=== PATIENT | male | born 1960 | race Caucasian/White ===

== ENCOUNTER 2019-03-02 09:49 | Emergency (ER) | payer MEDICAID ==
[~2019-03-02] VITALS: Ht 185.4 cm; Wt 86.4 kg
[2019-03-02] MEDS ORDERED: normal saline 1000ML IV soln IVB ONE ×2 (10:30→11:10)
[2019-03-02 10:41] LABS: BASOPHILS # (AUTO) 0.1 X10'3 (0-0.2); BASOPHILS % (AUTO) 0.4 % (0-1); EOSINOPHILS % (AUTO) 0.3 % (0-6); HEMATOCRIT 45.3 % (42.0-52.0); HEMOGLOBIN 15.5 g/dl (14.0-17.9); LYMPHOCYTES # (AUTO) 2.2 X10'3 (1.1-4.8); LYMPHOCYTES % (AUTO) 14.4 % (21-51); MEAN CORPUSCULAR HEMOGLOBIN 33.3 PG (27.0-31.0); MEAN CORPUSCULAR HGB CONC 34.1 g/dL (33.0-36.5); MEAN CORPUSCULAR VOLUME 97.7 FL (78-98); MEAN PLATELET VOLUME 8.9 FL (7.4-10.4); MONOCYTES # (AUTO) 2.1 X10'3 (0-0.9); MONOCYTES % (AUTO) 13.5 % (2-12); NEUTROPHILS # (AUTO) 11.2 X10'3 (1.8-7.7); NEUTROPHILS % (AUTO) 71.4 % (42-75); PLATELET COUNT 324 X10'3 (140-440); RED BLOOD COUNT 4.64 X10'6 (4.70-6.10); RED CELL DISTRIBUTION WIDTH 12.2 % (11.5-14.5); WHITE BLOOD COUNT 15.6 X10'3 (4.5-11.0)
[2019-03-02 10:48] LABS: ALANINE AMINOTRANSFERASE 63 U/L (12-78); ALBUMIN 2.4 G/DL (3.4-5.0); ALBUMIN/GLOBULIN RATIO 0.4 (1.1-1.5); ALKALINE PHOSPHATASE 103 IU/L (46-116); ANION GAP 9 (8-16); ASPARTATE AMINO TRANSFERASE 60 U/L (10-37); BILIRUBIN,TOTAL 1.6 MG/DL (0.1-1.0); BLOOD UREA NITROGEN 9 MG/DL (7-18); BUN/CREATININE RATIO 9.7 (5.4-32.0); CALCIUM 8.2 MG/DL (8.5-10.1); CHLORIDE 99 MMOL/L (99-107); CREATININE 0.93 MG/DL (0.60-1.10); SODIUM 130 MMOL/L (135-145); TOTAL CARBON DIOXIDE 22.2 MMOL/L (24-32); TOTAL PROTEIN 9.2 G/DL (6.4-8.2); eGFR 83 ML/MIN
[2019-03-02 10:54] LABS: MAGNESIUM 1.9 MG/DL (1.5-2.4)
[2019-03-02] MEDS ORDERED: ketorolac trometh. 30mg/ml inj. IV ONE (10:55)
[2019-03-02] MEDS ORDERED: cloNIDine 0.1 mg tablet PO ONE (10:55)
[2019-03-02 10:56] LABS: GLUCOSE 106 MG/DL (70-104)
[2019-03-02] MEDS ORDERED: SUMA25TA35 PO (11:36)
[2019-03-02 11:45] LABS: TOTAL CELLS COUNTED 100
[2019-03-02 11:46] LABS: PLATELET ESTIMATE NORMAL
[2019-03-02 12:03] VITALS: BP 112/70
[2019-03-02 13:13] LABS: CLARITY,URINE CLEAR (Clear); GLUCOSE, URINE NEGATIVE (Neg); KETONES,URINE NEGATIVE (Neg); LEUKOCYTE ESTERASE ,URINE NEGATIVE (Neg); NITRITES, URINE NEGATIVE (Neg); OCCULT BLOOD,URINE NEGATIVE (Neg); PROTEIN,URINE TRACE mg/dl (Neg)
[2019-03-02 13:16] LABS: COLOR,URINE DARK YELLOW (Yellow); UA COLLECTION TYPE VOIDED
[2019-03-02 13:21] LABS: BACTERIA,URINE NONE SEEN /HPF (Neg); RBC,URINE NONE SEEN /HPF (0-2); SQUAMOUS EPITHELIAL CELL,UR NONE SEEN /LPF (FEW); WBC,URINE NONE SEEN /HPF (0-4)
== END 2019-03-02 12:56 | disposition home or self-care (01) ==
LOC: ER 09:50
DX: R51 Headache (principal); E86.0 Dehydration; R06.02 Shortness of breath; R00.0 Tachycardia, unspecified; R68.2 Dry mouth, unspecified; R10.84 Generalized abdominal pain; F17.210 Nicotine dependence, cigarettes, uncomplicated; F10.99 Alcohol use, unspecified with unspecified alcohol-induced disorder; Z88.5 Allergy status to narcotic agent; Z88.8 Allergy status to other drugs, medicaments and biological substances; Y90.9 Presence of alcohol in blood, level not specified
CPT/HCPCS: 36415; 71045; 80053; 81001; 83735; 83880; 84145; 84484; 85025; 93005; 96361; 96374; 99284; J1885; J7030; 96368

== ENCOUNTER 2019-03-20 12:16 | Emergency (ER) | payer MEDICAID ==
[~2019-03-20] VITALS: Ht 185.4 cm; Wt 71.5 kg
[~2019-03-20 12:16] MED LIST: SUMA25TA35 PO
[2019-03-20 14:55] LABS: BASOPHILS # (AUTO) 0.1 X10'3 (0-0.2); EOSINOPHILS # (AUTO) 0.1 X10'3 (0-0.9); EOSINOPHILS % (AUTO) 0.7 % (0-6); HEMATOCRIT 44.7 % (42.0-52.0); LYMPHOCYTES # (AUTO) 2.1 X10'3 (1.1-4.8); MEAN CORPUSCULAR HEMOGLOBIN 33.2 PG (27.0-31.0); MEAN CORPUSCULAR HGB CONC 33.6 g/dL (33.0-36.5); MEAN CORPUSCULAR VOLUME 98.7 FL (78-98); MONOCYTES # (AUTO) 1.7 X10'3 (0-0.9); MONOCYTES % (AUTO) 12.6 % (2-12); NEUTROPHILS # (AUTO) 9.7 X10'3 (1.8-7.7); NEUTROPHILS % (AUTO) 70.7 % (42-75); PLATELET COUNT 205 X10'3 (140-440); RED BLOOD COUNT 4.53 X10'6 (4.70-6.10); RED CELL DISTRIBUTION WIDTH 13.2 % (11.5-14.5); WHITE BLOOD COUNT 13.7 X10'3 (4.5-11.0)
[2019-03-20 15:16] LABS: PARTIAL THROMBOPLASTIN TIME 26 SECONDS (22-32)
[2019-03-20 15:17] LABS: ALANINE AMINOTRANSFERASE 248 U/L (12-78); ALBUMIN 2.6 G/DL (3.4-5.0); ALBUMIN/GLOBULIN RATIO 0.4 (1.1-1.5); ALKALINE PHOSPHATASE 206 IU/L (46-116); ANION GAP 8 (8-16); ASPARTATE AMINO TRANSFERASE 166 U/L (10-37); BILIRUBIN,TOTAL 1.4 MG/DL (0.1-1.0); BLOOD UREA NITROGEN 10 MG/DL (7-18); BUN/CREATININE RATIO 13.7 (5.4-32.0); C-REACTIVE PROTEIN 5.56 MG/DL (0.0-0.5); CALCIUM 8.5 MG/DL (8.5-10.1); CHLORIDE 103 MMOL/L (99-107); CREATININE 0.73 MG/DL (0.60-1.10); GLUCOSE 84 MG/DL (70-104); MAGNESIUM 1.9 MG/DL (1.5-2.4); POTASSIUM 4.3 MMOL/L (3.5-5.1); SODIUM 137 MMOL/L (135-145); TOTAL CARBON DIOXIDE 25.9 MMOL/L (24-32); TOTAL PROTEIN 8.5 G/DL (6.4-8.2); eGFR > 90 ML/MIN
[2019-03-20] MEDS ORDERED: normal saline 1000ML IV soln IVB ONE (15:30)
[2019-03-20] MEDS ORDERED: proCHLORperazine 10 MG/2 ml inj IV ONE (15:30)
[2019-03-20] MEDS ORDERED: methylPREDNISolone sod succ 125mg/2ml vial IV ONE (15:30)
[2019-03-20] MEDS ORDERED: morphine 2 MG/ML inj. syringe IV PRN (15:30)
[2019-03-20] MEDS ORDERED: ketorolac trometh. 30mg/ml inj. IV ONE (15:30)
[2019-03-20] MEDS ORDERED: PROC25SU30 PO (15:50)
[2019-03-20] MEDS ORDERED: PRED10TA23 PO (15:50)
[2019-03-20 16:40] VITALS: BP 152/80
== END 2019-03-20 16:44 | disposition home or self-care (01) ==
LOC: ER 12:16
DX: M31.6 Other giant cell arteritis (principal); G43.909 Migraine, unspecified, not intractable, without status migrainosus; R00.2 Palpitations; Z88.5 Allergy status to narcotic agent; Z79.899 Other long term (current) drug therapy
CPT/HCPCS: 36415; 70450; 70486; 80053; 83735; 85025; 85610; 85651; 85730; 86140; 93005; 96374; 96375; 99284; J0780; J1885; J2930; J7030

== ENCOUNTER 2019-04-27 09:55 | Emergency (ER) | payer MEDICAID ==
[~2019-04-27] VITALS: Ht 185.4 cm; Wt 83.0 kg
[~2019-04-27 09:55] MED LIST changes: +PROC25SU30 PO; -SUMA25TA35 PO
[2019-04-27] MEDS ORDERED: METH4TAB81 PO (11:33)
[2019-04-27 12:03] VITALS: BP 128/76
== END 2019-04-27 12:05 | disposition home or self-care (01) ==
LOC: ER 09:56
DX: R51 Headache (principal); F10.99 Alcohol use, unspecified with unspecified alcohol-induced disorder; Z88.5 Allergy status to narcotic agent; Z79.899 Other long term (current) drug therapy; Y90.9 Presence of alcohol in blood, level not specified
CPT/HCPCS: 99283; 99284

== ENCOUNTER 2019-09-11 08:44 | Day surgery (SDC) | payer MEDICAID ==
[~2019-09-11] VITALS: Ht 185.4 cm; Wt 67.9 kg
[2019-09-11] VITALS (26 sets, daily range): BP systolic 94–126; BP diastolic 51–92
[~2019-09-11 08:44] MED LIST changes: +LACT-237 PO; -PROC25SU30 PO
[2019-09-11] MEDS ORDERED: normal saline 1000ml 1,000 ML IV SCH ×2 (09:10→12:41)
[2019-09-11] MEDS ORDERED: HYDR-4383 PO (09:59)
[2019-09-11 10:13] LABS: LYMPHOCYTES # (AUTO) 1.5 X10'3 (1.1-4.8); MEAN PLATELET VOLUME 9.1 FL (7.4-10.4)
[2019-09-11 10:16] LABS: BASOPHILS # (AUTO) 0.1 X10'3 (0-0.2); BASOPHILS % (AUTO) 0.6 % (0-1); EOSINOPHILS % (AUTO) 0.1 % (0-6); HEMATOCRIT 34.7 % (42.0-52.0); HEMOGLOBIN 11.5 g/dl (14.0-17.9); LYMPHOCYTES % (AUTO) 9.2 % (21-51); MEAN CORPUSCULAR HEMOGLOBIN 28.8 PG (27.0-31.0); MEAN CORPUSCULAR HGB CONC 33.1 g/dL (33.0-36.5); MEAN CORPUSCULAR VOLUME 86.9 FL (78-98); MONOCYTES # (AUTO) 2.1 X10'3 (0-0.9); MONOCYTES % (AUTO) 12.9 % (2-12); NEUTROPHILS # (AUTO) 12.4 X10'3 (1.8-7.7); NEUTROPHILS % (AUTO) 77.2 % (42-75); PLATELET COUNT 286 X10'3 (140-440); RED BLOOD COUNT 3.99 X10'6 (4.70-6.10); RED CELL DISTRIBUTION WIDTH 16.3 % (11.5-14.5); WHITE BLOOD COUNT 16.1 X10'3 (4.5-11.0)
[2019-09-11] MEDS ORDERED: fentaNYL/PF 50MCG/1 ML 2ML syringe ONE ×2 (10:44→11:45)
[2019-09-11] MEDS ORDERED: midazolam 2 mg/2 ml injection ONE (10:44)
[2019-09-11 10:54] LABS: ANISOCYTOSIS 1+; PLATELET ESTIMATE NORMAL; TOTAL CELLS COUNTED 100
[2019-09-11] MEDS ORDERED: gelatin sponge, absorbable (Gelfoam 12-7MM) sponge TP ONE (11:16)
[2019-09-11] MEDS ORDERED: LIDOcaine 1%/PF 5ML 10 MG/ML VIAL ONE (11:42)
[2019-09-11] MEDS ORDERED: HYDROcodone/acetaminophen 5mg/325mg tablet PO PRN (12:45)
== END 2019-09-11 16:00 | disposition home or self-care (01) ==
LOC: SSTAY O 08:44
PROVIDERS: ATTEND Radiology Vascular & Interventional Radiology
DX: R59.0 Localized enlarged lymph nodes (principal); R16.0 Hepatomegaly, not elsewhere classified; K74.69 Other cirrhosis of liver; C96.9 Malignant neoplasm of lymphoid, hematopoietic and related tissue, unspecified; F17.210 Nicotine dependence, cigarettes, uncomplicated; Z88.8 Allergy status to other drugs, medicaments and biological substances; Z88.5 Allergy status to narcotic agent; Z79.899 Other long term (current) drug therapy
CPT/HCPCS: 36415; 38505; 47000; 77012; 85025; 99152; 99153; J2250; J3010; 49180

== ENCOUNTER 2020-01-19 16:34 | Inpatient (IN) | payer MEDICAID ==
[~2020-01-19] VITALS: Ht 185.4 cm; Wt 68.2 kg
[~2020-01-19 16:34] MED LIST changes: +HYDR-4383 PO; -LACT-237 PO
[2020-01-19 17:59] LABS: BASOPHILS # (AUTO) 0.1 X10'3 (0-0.2); EOSINOPHILS % (AUTO) 0.1 % (0-6); HEMATOCRIT 22.5 % (42.0-52.0); HEMOGLOBIN 7.3 g/dl (14.0-17.9); LYMPHOCYTES # (AUTO) 2.1 X10'3 (1.1-4.8); MEAN CORPUSCULAR HEMOGLOBIN 31.6 PG (27.0-31.0); MEAN CORPUSCULAR HGB CONC 32.2 g/dL (33.0-36.5); MEAN CORPUSCULAR VOLUME 98.1 FL (78-98); MEAN PLATELET VOLUME 8.9 FL (7.4-10.4); MONOCYTES # (AUTO) 0.9 X10'3 (0-0.9); MONOCYTES % (AUTO) 14.1 % (2-12); NEUTROPHILS # (AUTO) 3.4 X10'3 (1.8-7.7); NEUTROPHILS % (AUTO) 52.8 % (42-75); PLATELET COUNT 263 X10'3 (140-440); RED BLOOD COUNT 2.29 X10'6 (4.70-6.10); RED CELL DISTRIBUTION WIDTH 20.8 % (11.5-14.5); WHITE BLOOD COUNT 6.5 X10'3 (4.5-11.0)
[2020-01-19 18:21] LABS: ALANINE AMINOTRANSFERASE 105 U/L (12-78); ALBUMIN 1.9 G/DL (3.4-5.0); ALBUMIN/GLOBULIN RATIO 0.4 (1.1-1.5); ALKALINE PHOSPHATASE 149 IU/L (46-116); ANION GAP 21 (8-16); ASPARTATE AMINO TRANSFERASE 163 U/L (10-37); BILIRUBIN,TOTAL 0.6 MG/DL (0.1-1.0); BLOOD UREA NITROGEN 37 MG/DL (7-18); BUN/CREATININE RATIO 26.2 (5.4-32.0); CALCIUM 7.8 MG/DL (8.5-10.1); CHLORIDE 103 MMOL/L (99-107); CREATININE 1.41 MG/DL (0.60-1.10); GLUCOSE 63 MG/DL (70-104); LIPASE 140 U/L (73-393); POTASSIUM 5.1 MMOL/L (3.5-5.1); SODIUM 138 MMOL/L (135-145); TOTAL PROTEIN 6.4 G/DL (6.4-8.2); eGFR 51 ML/MIN
[2020-01-19 18:23] LABS: TOTAL CARBON DIOXIDE 13.6 MMOL/L (24-32)
[2020-01-19 18:50] LABS: ANISOCYTOSIS 3+; PLATELET ESTIMATE NORMAL
[2020-01-19 18:51] LABS: ELLIPTOCYTES 1+; MICROCYTOSIS FEW
[2020-01-19 18:52] LABS: SPHEROCYTES FEW
--- NOTE | 2020-01-19 18:54 | NUR ---
pt was sitting in lobby in a wheelchair. He was breathing at a rapid rate and hands were presenting with carpal spasm. pt was not answering questions for me. while attempting to wheelchair pt back to room when he became rigid and began to slip out of wheelchair. pt was lowered safely to ground by staff where a pulse check was done. pt had a carotid pulse and was still breathing. MD was present and pt was moved to room 2 for further
[2020-01-19] MEDS ORDERED: CefTRIAXone 2gm/D5W 50ml 50 ML IV ONE (19:25)
[2020-01-19] MEDS ORDERED: octreotide inj. 500 MCG in normal saline 100ml IV soln 100 ML IV SCH (19:25)
[2020-01-19] MEDS ORDERED: pantoprazole 40 MG vial IV ONE (19:25)
[2020-01-19] MEDS ORDERED: OCTREOTIDE 1,250 MCG in NS 250ml IV.SOLN IV SCH (19:30)
[2020-01-19] MEDS ORDERED: CefTRIAXone inj 2,000 MG in normal saline 100ml IV soln 100 ML IV ONE (19:35)
[2020-01-19] MEDS ORDERED: iohexol 350MG/ML 100ml bottle IV ONE (19:37)
[2020-01-19 19:49] LABS: OCCULT BLOOD STOOL POSITIVE (Neg)
[2020-01-19 19:50] LABS: PARTIAL THROMBOPLASTIN TIME 28 SECONDS (22-32)
[2020-01-19 20:52] VITALS: BP 116/63
[2020-01-19] MEDS ORDERED: mag hydrox/Alum hydrox/simeth 30ml oral suspension PO PRN (20:55)
[2020-01-19] MEDS ORDERED: ondansetron/PF 4mg/2ml inj IV PRN (20:55)
[2020-01-19] MEDS ORDERED: morphine 2 MG/ML inj. syringe IV PRN (20:55)
[2020-01-19] MEDS ORDERED: magnesium hydroxide 30ml (MOM) UD suspension PO PRN (20:55)
[2020-01-19] MEDS ORDERED: acetaminophen 325mg tablet PO PRN (20:55)
[2020-01-19] MEDS ORDERED: MORP-92 PO (21:14)
[2020-01-19] MEDS ORDERED: ONDA8TAB6 PO (21:14)
[2020-01-19] MEDS ORDERED: HYDR2TAB28 PO (21:14)
[2020-01-19] MEDS: normal saline 1000ml 1,000 ML IV SCH (21:30)
[2020-01-19] MEDS ORDERED: dextrose 50%-water 50ml dispensing syringe IV ONE (22:00)
--- NOTE | 2020-01-19 22:06 | NUR ---
PT BLOOD SUGAR 31. EDMD BAEHER NOTIFIED AND RECEIVED VERBAL ORDER FOR DEXTROSE 50%. MEDICATION ORDER PLACED AND GIVEN.
[2020-01-19 23:50] LABS: ABG HCO3 10.2 mmol/L (22.0-26.0); ABG OXYGEN SATURATION 98.2 % (94-97); ABG PCO2 (T) 22.5 mmHg (35.0-48.0); ABG PO2 (T) 142.2 mmHg (75.0-100.0); FCOHb 0.3 % (0.0-3.9); FLOW 2 L/min; FMetHb 0.2 % (0.0-1.5); FO2Hb 97.7 % (94-97); TOTAL HEMOGLOBIN 8.4 G/dl (14.0-18.0)
[2020-01-20] VITALS (23 sets, daily range): BP systolic 91–153; BP diastolic 51–86
[2020-01-20 00:05] LABS: BASOPHILS # (AUTO) 0.1 X10'3 (0-0.2); BASOPHILS % (AUTO) 0.5 % (0-1); EOSINOPHILS % (AUTO) 0 % (0-6); HEMATOCRIT 27.8 % (42.0-52.0); LYMPHOCYTES # (AUTO) 1.5 X10'3 (1.1-4.8); LYMPHOCYTES % (AUTO) 8.5 % (21-51); MEAN CORPUSCULAR HGB CONC 32.2 g/dL (33.0-36.5); MEAN CORPUSCULAR VOLUME 96.1 FL (78-98); MEAN PLATELET VOLUME 8.2 FL (7.4-10.4); MONOCYTES # (AUTO) 2.2 X10'3 (0-0.9); MONOCYTES % (AUTO) 12.3 % (2-12); NEUTROPHILS # (AUTO) 13.9 X10'3 (1.8-7.7); NEUTROPHILS % (AUTO) 78.7 % (42-75); PLATELET COUNT 182 X10'3 (140-440); RED BLOOD COUNT 2.89 X10'6 (4.70-6.10); RED CELL DISTRIBUTION WIDTH 20.3 % (11.5-14.5); WHITE BLOOD COUNT 17.6 X10'3 (4.5-11.0)
[2020-01-20 00:15] LABS: CLARITY,URINE CLEAR (Clear); COLOR,URINE YELLOW (Yellow); GLUCOSE, URINE NEGATIVE (Neg); KETONES,URINE TRACE mg/dl (Neg); LEUKOCYTE ESTERASE ,URINE NEGATIVE (Neg); NITRITES, URINE NEGATIVE (Neg); OCCULT BLOOD,URINE LARGE (Neg); PH,URINE 5.5 (4.8-8.0); PROTEIN,URINE 30 mg/dl (Neg); UROBILINOGEN,URINE 0.2 E.U/dL (0.2-1.0)
[2020-01-20 00:29] LABS: UA COLLECTION TYPE CLN CATCH MIDSTREAM
[2020-01-20 00:30] LABS: AMORPHOUS URATES 1+; BACTERIA,URINE FEW /HPF (Neg); SQUAMOUS EPITHELIAL CELL,UR FEW /LPF (FEW); WBC,URINE 0-4 /HPF (0-4)
[2020-01-20 00:37] LABS: ANISOCYTOSIS 2+; PLATELET ESTIMATE NORMAL; SPHEROCYTES FEW; TOTAL CELLS COUNTED 100
[2020-01-20] MEDS ORDERED: HYDROmorphone 2mg tablet PO PRN (02:00)
[2020-01-20 05:11] LABS: ALBUMIN 1.9 G/DL (3.4-5.0); ANION GAP 12 (8-16); BLOOD UREA NITROGEN 38 MG/DL (7-18); CALCIUM 7.9 MG/DL (8.5-10.1); CHLORIDE 106 MMOL/L (99-107); CREATININE 1.46 MG/DL (0.60-1.10); GLUCOSE 153 MG/DL (70-104); POTASSIUM 4.7 MMOL/L (3.5-5.1); SODIUM 137 MMOL/L (135-145); TOTAL CARBON DIOXIDE 18.8 MMOL/L (24-32); eGFR 49 ML/MIN
[2020-01-20 05:18] LABS: BASOPHILS % (AUTO) 0.2 % (0-1); EOSINOPHILS % (AUTO) 0 % (0-6); HEMATOCRIT 25.2 % (42.0-52.0); HEMOGLOBIN 8.2 g/dl (14.0-17.9); LYMPHOCYTES # (AUTO) 1.5 X10'3 (1.1-4.8); LYMPHOCYTES % (AUTO) 10.6 % (21-51); MEAN CORPUSCULAR HEMOGLOBIN 30.4 PG (27.0-31.0); MEAN CORPUSCULAR HGB CONC 32.4 g/dL (33.0-36.5); MEAN CORPUSCULAR VOLUME 93.7 FL (78-98); MEAN PLATELET VOLUME 8.3 FL (7.4-10.4); NEUTROPHILS # (AUTO) 11.3 X10'3 (1.8-7.7); NEUTROPHILS % (AUTO) 82.2 % (42-75); PLATELET COUNT 168 X10'3 (140-440); RED BLOOD COUNT 2.69 X10'6 (4.70-6.10); RED CELL DISTRIBUTION WIDTH 18.9 % (11.5-14.5); WHITE BLOOD COUNT 13.7 X10'3 (4.5-11.0)
--- NOTE | 2020-01-20 06:00 | NUR ---
Patient in room PCU 3028. I have received report from Delores ALVA and had the opportunity to ask questions and assume patient care.
--- NOTE | 2020-01-20 06:09 | NUR ---
Problems reprioritized. Patient report given, questions answered & plan of care reviewed with Shelia ALVA.
[2020-01-20 06:39] LABS: PLATELET ESTIMATE NORMAL
[2020-01-20 06:40] LABS: ANISOCYTOSIS 2+
[2020-01-20] MEDS: normal saline 1000ml 1,000 ML IV SCH ×2 (06:51→17:35)
[2020-01-20] MEDS: pantoprazole 40MG/NS 100ML BAG 100 ML IV SCH ×4 (06:54→20:48)
[2020-01-20 08:53] LABS: BASOPHILS % (AUTO) 0.2 % (0-1); EOSINOPHILS % (AUTO) 0 % (0-6); HEMATOCRIT 24.2 % (42.0-52.0); LYMPHOCYTES # (AUTO) 1.9 X10'3 (1.1-4.8); LYMPHOCYTES % (AUTO) 15.4 % (21-51); MEAN CORPUSCULAR HEMOGLOBIN 30.5 PG (27.0-31.0); MEAN CORPUSCULAR HGB CONC 33.1 g/dL (33.0-36.5); MEAN PLATELET VOLUME 7.9 FL (7.4-10.4); MONOCYTES # (AUTO) 1.2 X10'3 (0-0.9); MONOCYTES % (AUTO) 9.9 % (2-12); NEUTROPHILS # (AUTO) 9.3 X10'3 (1.8-7.7); NEUTROPHILS % (AUTO) 74.5 % (42-75); PLATELET COUNT 157 X10'3 (140-440); RED BLOOD COUNT 2.63 X10'6 (4.70-6.10); RED CELL DISTRIBUTION WIDTH 18.8 % (11.5-14.5); WHITE BLOOD COUNT 12.5 X10'3 (4.5-11.0)
[2020-01-20 09:30] LABS: ANISOCYTOSIS 2+; PLATELET ESTIMATE NORMAL
[2020-01-20] MEDS ORDERED: non-formulary drug (Ondansetron Hcl (Zofran) 1 TAB) PO PRN (13:30)
--- NOTE | 2020-01-20 14:31 | NUR ---
Faxed medical records request to [facility] for EGD report.
[2020-01-20 15:23] LABS: BASOPHILS # (AUTO) 0.1 X10'3 (0-0.2); BASOPHILS % (AUTO) 0.5 % (0-1); EOSINOPHILS % (AUTO) 0.1 % (0-6); HEMATOCRIT 24.1 % (42.0-52.0); LYMPHOCYTES # (AUTO) 2.3 X10'3 (1.1-4.8); LYMPHOCYTES % (AUTO) 19.4 % (21-51); MEAN CORPUSCULAR HEMOGLOBIN 30.7 PG (27.0-31.0); MEAN CORPUSCULAR HGB CONC 33.4 g/dL (33.0-36.5); MEAN PLATELET VOLUME 8.5 FL (7.4-10.4); MONOCYTES # (AUTO) 0.9 X10'3 (0-0.9); NEUTROPHILS # (AUTO) 8.5 X10'3 (1.8-7.7); PLATELET COUNT 144 X10'3 (140-440); RED BLOOD COUNT 2.62 X10'6 (4.70-6.10); RED CELL DISTRIBUTION WIDTH 19.1 % (11.5-14.5); WHITE BLOOD COUNT 11.8 X10'3 (4.5-11.0)
[2020-01-20 15:44] LABS: ANISOCYTOSIS 2+; PLATELET ESTIMATE NORMAL
[2020-01-20] MEDS ORDERED: MIDAZolam 5mg/5ml vial ONE (17:52)
[2020-01-20] MEDS ORDERED: fentaNYL/PF 50MCG/1 ML 2ML syringe ONE (17:52)
[2020-01-20] MEDS ORDERED: LIDOcaine Viscous 15ml cup ONE (17:52)
--- NOTE | 2020-01-20 18:41 | NUR ---
Problems reprioritized. Patient report given, questions answered & plan of care reviewed with Neli ALVA.
--- NOTE | 2020-01-20 18:55 | NUR ---
Patient in room PCU 3028. I have received report from Della ALVA and had the opportunity to ask questions and assume patient care.
--- NOTE | 2020-01-20 20:33 | NUR ---
Patient arrived back from EGD. Vital signs obtained- 99%, HR 80, 96/57, temp -98.0. Post op vitals initiated. Will continue to monitor closely.
[2020-01-20] MEDS: morphine ER 15mg tablet PO SCH (20:48)
[2020-01-20 21:56] LABS: BASOPHILS % (AUTO) 0.4 % (0-1); EOSINOPHILS % (AUTO) 0.2 % (0-6); HEMATOCRIT 23.4 % (42.0-52.0); HEMOGLOBIN 7.9 g/dl (14.0-17.9); LYMPHOCYTES # (AUTO) 2.3 X10'3 (1.1-4.8); MEAN CORPUSCULAR HEMOGLOBIN 31.3 PG (27.0-31.0); MEAN CORPUSCULAR HGB CONC 33.7 g/dL (33.0-36.5); MEAN CORPUSCULAR VOLUME 92.8 FL (78-98); MEAN PLATELET VOLUME 8.4 FL (7.4-10.4); MONOCYTES # (AUTO) 1.5 X10'3 (0-0.9); MONOCYTES % (AUTO) 13.9 % (2-12); NEUTROPHILS # (AUTO) 6.9 X10'3 (1.8-7.7); NEUTROPHILS % (AUTO) 64.5 % (42-75); PLATELET COUNT 127 X10'3 (140-440); RED BLOOD COUNT 2.52 X10'6 (4.70-6.10); RED CELL DISTRIBUTION WIDTH 19.5 % (11.5-14.5); WHITE BLOOD COUNT 10.8 X10'3 (4.5-11.0)
[2020-01-20 22:05] LABS: ANISOCYTOSIS 2+; PLATELET ESTIMATE DECREASED
[2020-01-21] VITALS (9 sets, daily range): BP systolic 98–130; BP diastolic 56–85
[2020-01-21] MEDS: pantoprazole 40MG/NS 100ML BAG 100 ML IV SCH ×2 (01:14→05:36)
[2020-01-21] MEDS: normal saline 1000ml 1,000 ML IV SCH (02:51)
[2020-01-21 05:23] LABS: ALBUMIN 1.7 G/DL (3.4-5.0); ANION GAP 3 (8-16); BLOOD UREA NITROGEN 32 MG/DL (7-18); BUN/CREATININE RATIO 45.1 (5.4-32.0); CALCIUM 7.3 MG/DL (8.5-10.1); CHLORIDE 109 MMOL/L (99-107); CREATININE 0.71 MG/DL (0.60-1.10); GLUCOSE 86 MG/DL (70-104); POTASSIUM 3.9 MMOL/L (3.5-5.1); SODIUM 137 MMOL/L (135-145); TOTAL CARBON DIOXIDE 25.3 MMOL/L (24-32); eGFR > 90 ML/MIN
[2020-01-21 05:27] LABS: BASOPHILS # (AUTO) 0.1 X10'3 (0-0.2); BASOPHILS % (AUTO) 0.7 % (0-1); EOSINOPHILS % (AUTO) 0.3 % (0-6); HEMOGLOBIN 7.3 g/dl (14.0-17.9); LYMPHOCYTES # (AUTO) 2.1 X10'3 (1.1-4.8); LYMPHOCYTES % (AUTO) 27.5 % (21-51); MEAN CORPUSCULAR HEMOGLOBIN 31.7 PG (27.0-31.0); MEAN CORPUSCULAR HGB CONC 34.4 g/dL (33.0-36.5); MEAN CORPUSCULAR VOLUME 92.1 FL (78-98); MEAN PLATELET VOLUME 8.5 FL (7.4-10.4); MONOCYTES # (AUTO) 0.8 X10'3 (0-0.9); MONOCYTES % (AUTO) 10.2 % (2-12); NEUTROPHILS # (AUTO) 4.7 X10'3 (1.8-7.7); NEUTROPHILS % (AUTO) 61.3 % (42-75); PLATELET COUNT 121 X10'3 (140-440); RED BLOOD COUNT 2.29 X10'6 (4.70-6.10); RED CELL DISTRIBUTION WIDTH 18.5 % (11.5-14.5); WHITE BLOOD COUNT 7.7 X10'3 (4.5-11.0)
[2020-01-21 06:23] LABS: HEMATOCRIT 21.1 % (42.0-52.0)
--- NOTE | 2020-01-21 06:30 | NUR ---
Patient in room PCU 3028. I have received report from Yuliya ALVA and had the opportunity to ask questions and assume patient care.
--- NOTE | 2020-01-21 06:32 | NUR ---
Problems reprioritized. Patient report given, questions answered & plan of care reviewed with Alex RN and Josiah RN.
--- NOTE | 2020-01-21 06:33 | NUR ---
Dr Brown PAGER ID: [phone] MESSAGE: 3028B Bhaskar Flores Critical lab- hematocrit 21.1 Yuliya ALVA
--- NOTE | 2020-01-21 06:34 | NUR ---
Patient in room PCU 3028. I have received report from Yuliya ALVA and had the opportunity to ask questions and assume patient care.
[2020-01-21] MEDS: morphine ER 15mg tablet PO SCH ×2 (07:58→19:51)
[2020-01-21 11:08] LABS: BASOPHILS # (AUTO) 0.1 X10'3 (0-0.2); BASOPHILS % (AUTO) 0.8 % (0-1); EOSINOPHILS % (AUTO) 0.3 % (0-6); HEMATOCRIT 22.1 % (42.0-52.0); HEMOGLOBIN 7.5 g/dl (14.0-17.9); LYMPHOCYTES # (AUTO) 1.5 X10'3 (1.1-4.8); LYMPHOCYTES % (AUTO) 21.6 % (21-51); MEAN CORPUSCULAR HEMOGLOBIN 31.4 PG (27.0-31.0); MEAN CORPUSCULAR HGB CONC 33.8 g/dL (33.0-36.5); MEAN CORPUSCULAR VOLUME 92.7 FL (78-98); MEAN PLATELET VOLUME 8.5 FL (7.4-10.4); MONOCYTES # (AUTO) 0.9 X10'3 (0-0.9); MONOCYTES % (AUTO) 12.8 % (2-12); NEUTROPHILS # (AUTO) 4.4 X10'3 (1.8-7.7); NEUTROPHILS % (AUTO) 64.5 % (42-75); PLATELET COUNT 118 X10'3 (140-440); RED BLOOD COUNT 2.38 X10'6 (4.70-6.10); RED CELL DISTRIBUTION WIDTH 18.5 % (11.5-14.5); WHITE BLOOD COUNT 6.8 X10'3 (4.5-11.0)
[2020-01-21 15:52] LABS: BASOPHILS # (AUTO) 0.1 X10'3 (0-0.2); BASOPHILS % (AUTO) 1.6 % (0-1); EOSINOPHILS % (AUTO) 0.4 % (0-6); HEMOGLOBIN 7.2 g/dl (14.0-17.9); LYMPHOCYTES # (AUTO) 1.7 X10'3 (1.1-4.8); LYMPHOCYTES % (AUTO) 24.3 % (21-51); MEAN CORPUSCULAR HEMOGLOBIN 31.2 PG (27.0-31.0); MEAN CORPUSCULAR HGB CONC 33.5 g/dL (33.0-36.5); MEAN CORPUSCULAR VOLUME 93.2 FL (78-98); MONOCYTES # (AUTO) 0.8 X10'3 (0-0.9); MONOCYTES % (AUTO) 11.5 % (2-12); NEUTROPHILS # (AUTO) 4.4 X10'3 (1.8-7.7); NEUTROPHILS % (AUTO) 62.2 % (42-75); PLATELET COUNT 118 X10'3 (140-440); RED BLOOD COUNT 2.29 X10'6 (4.70-6.10); RED CELL DISTRIBUTION WIDTH 18.8 % (11.5-14.5); WHITE BLOOD COUNT 7.1 X10'3 (4.5-11.0)
[2020-01-21 15:54] LABS: HEMATOCRIT 21.4 % (42.0-52.0)
--- NOTE | 2020-01-21 16:09 | NUR ---
paged Dr. Tafoya for LAB crit PAGER ID: [phone] MESSAGE: 3028B, Bhaskar Flores. LAB critical: Hct 21.4 thank you. Josiah [phone]
--- NOTE | 2020-01-21 18:00 | NUR ---
[place]rientee documentation: I have reviewed and agree with all interventions, assessments performed and documented by Josiah Pardo RN.
--- NOTE | 2020-01-21 18:21 | NUR ---
Problems reprioritized. Patient report given, questions answered & plan of care reviewed with Benjamin RN.
--- NOTE | 2020-01-21 18:23 | NUR ---
Problems reprioritized. Patient report given, questions answered & plan of care reviewed with Benjamin RN.
--- NOTE | 2020-01-21 18:30 | NUR ---
Patient in room PCU 3028. I have received report from Elle ALVA and had the opportunity to ask questions and assume patient care.
[2020-01-21] MEDS: pantoprazole 40mg Tablet.DR PO SCH (19:52)
[2020-01-21 21:40] LABS: BASOPHILS # (AUTO) 0.1 X10'3 (0-0.2); BASOPHILS % (AUTO) 1.2 % (0-1); EOSINOPHILS % (AUTO) 0.5 % (0-6); HEMATOCRIT 22.5 % (42.0-52.0); HEMOGLOBIN 7.5 g/dl (14.0-17.9); LYMPHOCYTES # (AUTO) 1.8 X10'3 (1.1-4.8); LYMPHOCYTES % (AUTO) 25.4 % (21-51); MEAN CORPUSCULAR HEMOGLOBIN 30.9 PG (27.0-31.0); MEAN CORPUSCULAR HGB CONC 33.3 g/dL (33.0-36.5); MEAN CORPUSCULAR VOLUME 92.8 FL (78-98); MEAN PLATELET VOLUME 8.5 FL (7.4-10.4); MONOCYTES # (AUTO) 0.9 X10'3 (0-0.9); MONOCYTES % (AUTO) 12.8 % (2-12); NEUTROPHILS # (AUTO) 4.4 X10'3 (1.8-7.7); NEUTROPHILS % (AUTO) 60.1 % (42-75); PLATELET COUNT 124 X10'3 (140-440); RED BLOOD COUNT 2.43 X10'6 (4.70-6.10); RED CELL DISTRIBUTION WIDTH 18.5 % (11.5-14.5); WHITE BLOOD COUNT 7.3 X10'3 (4.5-11.0)
[2020-01-22] VITALS (13 sets, daily range): BP systolic 90–122; BP diastolic 50–65
[2020-01-22] MEDS: morphine 2 MG/ML inj. syringe IV PRN ×3 (02:35→19:55)
[2020-01-22 04:54] LABS: BASOPHILS # (AUTO) 0.1 X10'3 (0-0.2); BASOPHILS % (AUTO) 1.9 % (0-1); EOSINOPHILS % (AUTO) 0.7 % (0-6); HEMOGLOBIN 7.2 g/dl (14.0-17.9); LYMPHOCYTES # (AUTO) 1.6 X10'3 (1.1-4.8); LYMPHOCYTES % (AUTO) 24.9 % (21-51); MEAN CORPUSCULAR HEMOGLOBIN 31.5 PG (27.0-31.0); MEAN CORPUSCULAR HGB CONC 33.7 g/dL (33.0-36.5); MEAN CORPUSCULAR VOLUME 93.5 FL (78-98); MEAN PLATELET VOLUME 8.4 FL (7.4-10.4); MONOCYTES # (AUTO) 0.7 X10'3 (0-0.9); NEUTROPHILS # (AUTO) 3.9 X10'3 (1.8-7.7); NEUTROPHILS % (AUTO) 61.5 % (42-75); PLATELET COUNT 115 X10'3 (140-440); RED CELL DISTRIBUTION WIDTH 18.7 % (11.5-14.5); WHITE BLOOD COUNT 6.4 X10'3 (4.5-11.0)
[2020-01-22 04:57] LABS: HEMATOCRIT 21.5 % (42.0-52.0)
--- NOTE | 2020-01-22 05:03 | NUR ---
Paged Dr. Brown - Discussed patient condition - no additional orders at this time will continue to monitor. 3028B - Bhaskar Flores 59/M - Critical hematocrit, H&H 7.2/21.5 from 7.5/22.5. Post EGD, found x3 ulcers, x1 biopsy, thinking likeky r/t ibuprophen use, liver ca hx. [phone] Benjamin RN
[2020-01-22 05:04] LABS: ALBUMIN 1.5 G/DL (3.4-5.0); ANION GAP 3 (8-16); BLOOD UREA NITROGEN 20 MG/DL (7-18); BUN/CREATININE RATIO 35.1 (5.4-32.0); CALCIUM 7.1 MG/DL (8.5-10.1); CHLORIDE 108 MMOL/L (99-107); CREATININE 0.57 MG/DL (0.60-1.10); GLUCOSE 82 MG/DL (70-104); POTASSIUM 3.7 MMOL/L (3.5-5.1); SODIUM 137 MMOL/L (135-145); TOTAL CARBON DIOXIDE 25.8 MMOL/L (24-32); eGFR > 90 ML/MIN
--- NOTE | 2020-01-22 06:14 | NUR ---
Patient in room PCU 3028. I have received report from Elle ALVA and had the opportunity to ask questions and assume patient care.
--- NOTE | 2020-01-22 06:14 | NUR ---
Patient in room PCU 3028. I have received report from Elle ALVA and had the opportunity to ask questions and assume patient care.
--- NOTE | 2020-01-22 06:20 | NUR ---
Patient in room PCU 3028. I have received report from Benjamin ALVA and had the opportunity to ask questions and assume patient care.
--- NOTE | 2020-01-22 06:38 | NUR ---
Patient in room PCU 3028. I have received report from Benjamin ALVA and had the opportunity to ask questions and assume patient care.
[2020-01-22] MEDS: pantoprazole 40mg Tablet.DR PO SCH ×2 (07:05→19:55)
[2020-01-22] MEDS: morphine ER 15mg tablet PO SCH ×2 (07:06→19:55)
[2020-01-22 09:54] LABS: BASOPHILS # (AUTO) 0.1 X10'3 (0-0.2); BASOPHILS % (AUTO) 1.4 % (0-1); EOSINOPHILS % (AUTO) 0.7 % (0-6); HEMOGLOBIN 7.3 g/dl (14.0-17.9); LYMPHOCYTES # (AUTO) 1.2 X10'3 (1.1-4.8); MEAN CORPUSCULAR HEMOGLOBIN 31.1 PG (27.0-31.0); MEAN CORPUSCULAR HGB CONC 33.4 g/dL (33.0-36.5); MEAN CORPUSCULAR VOLUME 93.2 FL (78-98); MEAN PLATELET VOLUME 8.6 FL (7.4-10.4); MONOCYTES # (AUTO) 0.6 X10'3 (0-0.9); MONOCYTES % (AUTO) 11.2 % (2-12); NEUTROPHILS # (AUTO) 3.7 X10'3 (1.8-7.7); NEUTROPHILS % (AUTO) 64.7 % (42-75); PLATELET COUNT 118 X10'3 (140-440); RED BLOOD COUNT 2.34 X10'6 (4.70-6.10); RED CELL DISTRIBUTION WIDTH 18.4 % (11.5-14.5); WHITE BLOOD COUNT 5.7 X10'3 (4.5-11.0)
[2020-01-22 09:56] LABS: HEMATOCRIT 21.8 % (42.0-52.0)
--- NOTE | 2020-01-22 09:57 | NUR ---
Paged Dr. Tafoya for Lab Crit PAGER ID: [phone] MESSAGE: 3028B. Bhaskar Flores. Spencer ALVARADO. Lab Crit for H/H: .3.8 Thank You. Josiah ALVA [phone]
--- NOTE | 2020-01-22 14:22 | NUR ---
PAGER ID: [phone] MESSAGE: Re: Bhaskar Flores. Room: 3028B. Pt's Blood transfusion finished. -[facility] #[id number] Dr. Tafoya paged concerning Pt's blood transfusion finishing
[2020-01-22 15:43] LABS: BASOPHILS # (AUTO) 0.1 X10'3 (0-0.2); BASOPHILS % (AUTO) 1.4 % (0-1); EOSINOPHILS # (AUTO) 0.1 X10'3 (0-0.9); EOSINOPHILS % (AUTO) 0.9 % (0-6); HEMOGLOBIN 9.3 g/dl (14.0-17.9); LYMPHOCYTES # (AUTO) 1.9 X10'3 (1.1-4.8); LYMPHOCYTES % (AUTO) 26.7 % (21-51); MEAN CORPUSCULAR HEMOGLOBIN 30.9 PG (27.0-31.0); MEAN CORPUSCULAR HGB CONC 33.4 g/dL (33.0-36.5); MEAN CORPUSCULAR VOLUME 92.3 FL (78-98); MEAN PLATELET VOLUME 8.4 FL (7.4-10.4); MONOCYTES # (AUTO) 0.7 X10'3 (0-0.9); MONOCYTES % (AUTO) 10.5 % (2-12); NEUTROPHILS # (AUTO) 4.2 X10'3 (1.8-7.7); NEUTROPHILS % (AUTO) 60.5 % (42-75); PLATELET COUNT 160 X10'3 (140-440); RED BLOOD COUNT 3.03 X10'6 (4.70-6.10); RED CELL DISTRIBUTION WIDTH 17.8 % (11.5-14.5)
--- NOTE | 2020-01-22 18:00 | NUR ---
[place]rientee documentation: I have reviewed and agree with all interventions, assessments performed and documented by Josiah Pardo RN.
--- NOTE | 2020-01-22 18:10 | NUR ---
Problems reprioritized. Patient report given, questions answered & plan of care reviewed with Benjamin RN.
--- NOTE | 2020-01-22 18:12 | NUR ---
Problems reprioritized. Patient report given, questions answered & plan of care reviewed with Benjamin RN.
[2020-01-22 21:47] LABS: BASOPHILS # (AUTO) 0.1 X10'3 (0-0.2); BASOPHILS % (AUTO) 1.3 % (0-1); EOSINOPHILS # (AUTO) 0.1 X10'3 (0-0.9); EOSINOPHILS % (AUTO) 0.8 % (0-6); HEMATOCRIT 24.2 % (42.0-52.0); HEMOGLOBIN 8.2 g/dl (14.0-17.9); LYMPHOCYTES # (AUTO) 1.5 X10'3 (1.1-4.8); LYMPHOCYTES % (AUTO) 23.1 % (21-51); MEAN CORPUSCULAR HEMOGLOBIN 31.2 PG (27.0-31.0); MEAN CORPUSCULAR VOLUME 91.8 FL (78-98); MEAN PLATELET VOLUME 8.7 FL (7.4-10.4); MONOCYTES # (AUTO) 0.7 X10'3 (0-0.9); MONOCYTES % (AUTO) 11.3 % (2-12); NEUTROPHILS # (AUTO) 4.1 X10'3 (1.8-7.7); NEUTROPHILS % (AUTO) 63.5 % (42-75); PLATELET COUNT 120 X10'3 (140-440); RED BLOOD COUNT 2.63 X10'6 (4.70-6.10); RED CELL DISTRIBUTION WIDTH 17.9 % (11.5-14.5); WHITE BLOOD COUNT 6.4 X10'3 (4.5-11.0)
[2020-01-23 03:00] VITALS: BP_SYST 102; BP_SYST 105; BP_SYST 68; BP_DIAS 43; BP_DIAS 55; BP_DIAS 56
[2020-01-23] MEDS: morphine 2 MG/ML inj. syringe IV PRN (03:16)
--- NOTE | 2020-01-23 03:26 | NUR ---
TALKED TO DR VARGAS ABOUT PATIENT +ORTHOSTATIC VITALS / 105/55 SITTING TO 68/43 STANDING. BP BACK TO 100/58 5 MINUTES AFTER LAYING BACK DOWN. Addendum: 01/23/20 at 0625 by Wojciech Johnson RN Ordered to place joanna amaro on patient
[2020-01-23 05:57] LABS: BASOPHILS # (AUTO) 0.1 X10'3 (0-0.2); BASOPHILS % (AUTO) 1.7 % (0-1); EOSINOPHILS % (AUTO) 0.8 % (0-6); HEMATOCRIT 25.1 % (42.0-52.0); HEMOGLOBIN 8.5 g/dl (14.0-17.9); LYMPHOCYTES # (AUTO) 1.3 X10'3 (1.1-4.8); LYMPHOCYTES % (AUTO) 24.7 % (21-51); MEAN CORPUSCULAR HEMOGLOBIN 31.1 PG (27.0-31.0); MEAN CORPUSCULAR VOLUME 91.5 FL (78-98); MEAN PLATELET VOLUME 9.1 FL (7.4-10.4); MONOCYTES # (AUTO) 0.8 X10'3 (0-0.9); MONOCYTES % (AUTO) 15.1 % (2-12); NEUTROPHILS % (AUTO) 57.7 % (42-75); PLATELET COUNT 124 X10'3 (140-440); RED BLOOD COUNT 2.74 X10'6 (4.70-6.10); RED CELL DISTRIBUTION WIDTH 17.9 % (11.5-14.5); WHITE BLOOD COUNT 5.2 X10'3 (4.5-11.0)
[2020-01-23 05:59] LABS: ALBUMIN 1.7 G/DL (3.4-5.0); ANION GAP 5 (8-16); BLOOD UREA NITROGEN 13 MG/DL (7-18); BUN/CREATININE RATIO 20.6 (5.4-32.0); CALCIUM 7.2 MG/DL (8.5-10.1); CHLORIDE 106 MMOL/L (99-107); CREATININE 0.63 MG/DL (0.60-1.10); GLUCOSE 89 MG/DL (70-104); POTASSIUM 3.5 MMOL/L (3.5-5.1); SODIUM 136 MMOL/L (135-145); eGFR > 90 ML/MIN
--- NOTE | 2020-01-23 06:21 | NUR ---
Problems reprioritized. Patient report given, questions answered & plan of care reviewed with Flor ALVA.
--- NOTE | 2020-01-23 06:24 | NUR ---
Patient in room PCU 3028. I have received report from britt and had the opportunity to ask questions and assume patient care.
[2020-01-23 07:00] VITALS: BP 97/55
[2020-01-23] MEDS: morphine ER 15mg tablet PO SCH (07:25)
[2020-01-23] MEDS: pantoprazole 40mg Tablet.DR PO SCH (07:25)
[2020-01-23 10:08] LABS: BASOPHILS # (AUTO) 0.1 X10'3 (0-0.2); BASOPHILS % (AUTO) 1.2 % (0-1); EOSINOPHILS % (AUTO) 0.9 % (0-6); HEMATOCRIT 24.2 % (42.0-52.0); HEMOGLOBIN 8.2 g/dl (14.0-17.9); LYMPHOCYTES # (AUTO) 1.3 X10'3 (1.1-4.8); LYMPHOCYTES % (AUTO) 26.1 % (21-51); MEAN CORPUSCULAR HEMOGLOBIN 31.6 PG (27.0-31.0); MEAN CORPUSCULAR HGB CONC 33.9 g/dL (33.0-36.5); MEAN CORPUSCULAR VOLUME 93.2 FL (78-98); MEAN PLATELET VOLUME 8.8 FL (7.4-10.4); MONOCYTES # (AUTO) 0.8 X10'3 (0-0.9); MONOCYTES % (AUTO) 15.7 % (2-12); NEUTROPHILS # (AUTO) 2.7 X10'3 (1.8-7.7); NEUTROPHILS % (AUTO) 56.1 % (42-75); PLATELET COUNT 117 X10'3 (140-440); RED BLOOD COUNT 2.59 X10'6 (4.70-6.10); RED CELL DISTRIBUTION WIDTH 17.8 % (11.5-14.5); WHITE BLOOD COUNT 4.9 X10'3 (4.5-11.0)
[2020-01-23] MEDS ORDERED: PANT40TA4 PO (10:15)
[2020-01-23 11:00] VITALS: BP 108/59
[2020-01-23 13:23] LABS: ALANINE AMINOTRANSFERASE 227 U/L (12-78); ALBUMIN 1.6 G/DL (3.4-5.0); ALBUMIN/GLOBULIN RATIO 0.4 (1.1-1.5); ALKALINE PHOSPHATASE 144 IU/L (46-116); ANION GAP 6 (8-16); ASPARTATE AMINO TRANSFERASE 303 U/L (10-37); BILIRUBIN,TOTAL 0.8 MG/DL (0.1-1.0); BLOOD UREA NITROGEN 13 MG/DL (7-18); BUN/CREATININE RATIO 18.1 (5.4-32.0); CALCIUM 7.1 MG/DL (8.5-10.1); CHLORIDE 106 MMOL/L (99-107); CREATININE 0.72 MG/DL (0.60-1.10); GLUCOSE 96 MG/DL (70-104); POTASSIUM 3.5 MMOL/L (3.5-5.1); SODIUM 136 MMOL/L (135-145); TOTAL CARBON DIOXIDE 23.6 MMOL/L (24-32); TOTAL PROTEIN 5.6 G/DL (6.4-8.2); eGFR > 90 ML/MIN
[2020-01-23 15:37] VITALS: BP 117/63
--- NOTE | 2020-01-23 16:12 | NUR ---
Discharge instructions gone over with pt. Verbalizes understanding. IV's dc'd x2. Discharged with brother via [place].
== END 2020-01-23 16:12 | disposition home health service (06) | DRG 241 ==
LOC: ER 16:35 → ED HOLD 20:51 → EDBEDREQSVC 01-20 00:22 → PCU 3S 01-20 00:40
PROVIDERS: ADMIT Internal Medicine; ATTEND Family Medicine
PROC: 30233N1 Transfusion of Nonautologous Red Blood Cells into Peripheral Vein, Percutaneous Approach (ICD-10-PCS; 2020-01-19)
PROC: 0DB58ZX Excision of Esophagus, Via Natural or Artificial Opening Endoscopic, Diagnostic (ICD-10-PCS; principal; 2020-01-20)
DX: K29.71 Gastritis, unspecified, with bleeding (principal); N17.9 Acute kidney failure, unspecified; D62 Acute posthemorrhagic anemia; E87.2 Acidosis; E88.09 Other disorders of plasma-protein metabolism, not elsewhere classified; F17.210 Nicotine dependence, cigarettes, uncomplicated; K22.11 Ulcer of esophagus with bleeding; K72.90 Hepatic failure, unspecified without coma; K74.69 Other cirrhosis of liver; R18.8 Other ascites; G89.29 Other chronic pain; C22.0 Liver cell carcinoma; Z88.5 Allergy status to narcotic agent; Z88.8 Allergy status to other drugs, medicaments and biological substances
CPT/HCPCS: 36415; 36430; 36600; 43239; 49083; 70450; 71045; 74174; 80048; 80053; 81001; 82140; 82272; 82803; 82948; 83605; 83690; 83880; 84145; 85018; 85025; 85610; 85730; 86885; 86900; 86901; 86920; 87040; 87081; 93005; 97110; 97116; 97162; 97535; 99152; 99153; 99291; A4620; C9113; G0378; J0696; J2250; J2270; J2354; J2405; J3010; J7030; J7040; J7050; P9016; Q9967

== ENCOUNTER 2020-03-08 06:12 | Day surgery (SDC) | payer MEDICAID ==
[~2020-03-08] VITALS: Ht 185.4 cm; Wt 89.0 kg
[~2020-03-08 06:12] MED LIST changes: -HYDR-4383 PO; +HYDR2TAB28 PO; +MORP-92 PO; +ONDA8TAB6 PO; +PANT40TA54 PO
[2020-03-08 06:36] VITALS: BP 119/73
[2020-03-08] MEDS ORDERED: PANT-47 PO (06:46)
[2020-03-08] MEDS: albumin 25% 100mL bottle x 1 IV PRN ×3 (09:28→10:58)
[2020-03-08 10:49] VITALS: BP 108/67
[2020-03-08 11:00] VITALS: BP 110/76
[2020-03-08 11:20] VITALS: BP 118/65
== END 2020-03-08 11:45 | disposition home or self-care (01) ==
LOC: SSTAY O 06:12
PROVIDERS: ATTEND Radiology Vascular & Interventional Radiology
DX: R18.8 Other ascites (principal)
CPT/HCPCS: 49083; P9047

== ENCOUNTER 2020-03-28 06:57 | Day surgery (SDC) | payer MEDICAID ==
[2020-03-28] VITALS (12 sets, daily range): BP systolic 87–132; BP diastolic 54–83
[~2020-03-28] VITALS: Ht 185.4 cm; Wt 89.0 kg
[~2020-03-28 06:57] MED LIST changes: -MORP-92 PO; +PANT-47 PO; -PANT40TA54 PO
[2020-03-28] MEDS ORDERED: ASCO100T12 PO (07:29)
[2020-03-28] MEDS ORDERED: FURO40TA4 PO (07:29)
[2020-03-28] MEDS ORDERED: POLY119P2 PO (07:29)
[2020-03-28] MEDS ORDERED: DOCO1CAP4 PO (07:29)
[2020-03-28] MEDS ORDERED: PROC10TA10 PO (07:29)
[2020-03-28] MEDS: albumin 25% 100mL bottle x 1 IV PRN ×3 (08:38→10:26)
[2020-03-28 09:52] LABS: HEMOGLOBIN 8.5 g/dl (14.0-17.9); LYMPHOCYTES # (AUTO) 1.3 X10'3 (1.1-4.8); MONOCYTES # (AUTO) 1.1 X10'3 (0-0.9); NEUTROPHILS # (AUTO) 4.3 X10'3 (1.8-7.7); NEUTROPHILS % (AUTO) 63.2 % (42-75)
[2020-03-28 09:53] LABS: BASOPHILS # (AUTO) 0.1 X10'3 (0-0.2); BASOPHILS % (AUTO) 0.8 % (0-1); EOSINOPHILS % (AUTO) 0.4 % (0-6); HEMATOCRIT 25.3 % (42.0-52.0); LYMPHOCYTES % (AUTO) 19.1 % (21-51); MEAN CORPUSCULAR HEMOGLOBIN 30.4 PG (27.0-31.0); MEAN CORPUSCULAR HGB CONC 33.7 g/dL (33.0-36.5); MEAN CORPUSCULAR VOLUME 90.2 FL (78-98); MEAN PLATELET VOLUME 7.7 FL (7.4-10.4); MONOCYTES % (AUTO) 16.5 % (2-12); PLATELET COUNT 287 X10'3 (140-440); RED BLOOD COUNT 2.81 X10'6 (4.70-6.10); RED CELL DISTRIBUTION WIDTH 20.1 % (11.5-14.5); WHITE BLOOD COUNT 6.9 X10'3 (4.5-11.0)
[2020-03-28 10:08] LABS: ALANINE AMINOTRANSFERASE 32 U/L (12-78); ALBUMIN 2.1 G/DL (3.4-5.0); ALBUMIN/GLOBULIN RATIO 0.4 (1.1-1.5); ALKALINE PHOSPHATASE 100 IU/L (46-116); ANION GAP 1 (8-16); ASPARTATE AMINO TRANSFERASE 53 U/L (10-37); BILIRUBIN,TOTAL 0.7 MG/DL (0.1-1.0); BLOOD UREA NITROGEN 13 MG/DL (7-18); BUN/CREATININE RATIO 15.1 (5.4-32.0); CALCIUM 7.6 MG/DL (8.5-10.1); CHLORIDE 91 MMOL/L (99-107); CREATININE 0.86 MG/DL (0.60-1.10); GLUCOSE 120 MG/DL (70-104); POTASSIUM 3.8 MMOL/L (3.5-5.1); SODIUM 126 MMOL/L (135-145); TOTAL CARBON DIOXIDE 34.4 MMOL/L (24-32); TOTAL PROTEIN 6.8 G/DL (6.4-8.2); eGFR > 90 ML/MIN
[2020-03-28 10:14] LABS: ANISOCYTOSIS 3+; PLATELET ESTIMATE NORMAL; TOTAL CELLS COUNTED 100
== END 2020-03-28 11:29 | disposition home or self-care (01) ==
LOC: SSTAY O 06:57
PROVIDERS: ATTEND Radiology Diagnostic Radiology
DX: R18.8 Other ascites (principal)
CPT/HCPCS: 49083; 80053; 85007; 85025; P9047